=== PATIENT | male | born 1975 | race Caucasian/White ===

== ENCOUNTER → 2022-11-03 | Outpatient (CLI) | payer SELFPAY ==
[2022-11-03 19:26] LABS: Alanine Aminotransfer (ALT/SGP 46 U/L (12-78); Albumin, Blood 4.3 g/dL (3.4-5.0); Albumin/Globulin Ratio 1.4 (0.8-1.8); Alk Phos 88 U/L (50-136); Anion Gap 4 mmol/L (6-16); Aspartate Aminotrans (AST/SGOT 23 U/L (12-37); Bilirubin, Total 0.5 mg/dL (0.1-1.0); Blood Urea Nitrogen 14 mg/dL (8-24); Bun/Creatinine Ratio 14.7 (12.0-20.0); CHOL/HDL RATIO 5.4; CO2, Blood 25 mmol/L (21-32); Calcium, Blood 8.9 mg/dL (8.5-10.1); Chloride, Blood 108 mmol/L (98-108); Cholesterol 158 mg/dL (50-200); Creatinine, Blood 0.95 mg/dL (0.60-1.20); Globulin, Blood 3.1 g/dL (2.2-4.0); Glomerular Filtration Rate 101 (60-); Glucose, Blood 115 mg/dL (70-99); HDL Cholesterol 29 mg/dL (>39); LDL/HDL RATIO 3.9; Low Density Lipoprotein Chol 114 mg/dL (0-110); Potassium, Blood 4.2 mmol/L (3.5-5.5); Sodium, Blood 137 mmol/L (136-145); Total Protein, Blood 7.4 g/dL (6.4-8.2); Triglycerides 76 mg/dL (30-160); Very Low Density Lipoprot Chol 15 mg/dL (6-32)
== END | disposition home or self-care (01) ==
LOC: LAB SHORT 13:24
PROVIDERS: Hospitalist
DX: E78.2 Mixed hyperlipidemia (principal); I10 Essential (primary) hypertension
CPT/HCPCS: 80053; 80061

== ENCOUNTER 2023-09-02 07:15 | Day surgery (SDC) | payer BC ==
[~2023-09-02] VITALS: Ht 188 cm; Wt 103.7 kg
[~2023-09-02 07:15] MED LIST: AMLO5 PO; Aspir 8181 MG PO; Crestor40 MG PO; METO50ER PO; MULTI-VITAMIN1 EAC2 PO
[2023-09-02] MEDS ORDERED: Milk Thistle175 M1 (07:34)
[2023-09-02] MEDS ORDERED: VITAMIN D310 MC4 (07:34)
[2023-09-02] MEDS ORDERED: Lactated Ringer's 1,000 ML IV ONE ×2 (08:05→08:17)
[2023-09-02] MEDS ORDERED: propofoL 50 ML IV ONE (08:05)
[2023-09-02 09:17] VITALS: BP 121/77
== END 2023-09-02 09:19 | disposition home or self-care (01) ==
LOC: ORSCSDS 07:15
PROVIDERS: Specialist
PROC: 0DBL8ZX Excision of Transverse Colon, Via Natural or Artificial Opening Endoscopic, Diagnostic (ICD-10-PCS; principal; 2023-09-02 08:30)
DX: R10.32 Left lower quadrant pain (principal); K63.5 Polyp of colon; K64.8 Other hemorrhoids; I10 Essential (primary) hypertension; I25.2 Old myocardial infarction; K62.89 Other specified diseases of anus and rectum; Z79.82 Long term (current) use of aspirin; Z79.899 Other long term (current) drug therapy
CPT/HCPCS: 88305; J2704; J7120

== ENCOUNTER → 2024-01-13 | Outpatient (CLI) | payer BC ==
[~2024-01-13] MED LIST changes: +Milk Thistle175 M1; +VITAMIN D310 MC4
[2024-01-13 15:09] LABS: Alanine Aminotransfer (ALT/SGP 29 U/L (12-78); Albumin, Blood 3.9 g/dL (3.4-5.0); Albumin/Globulin Ratio 1.2 (0.8-1.8); Alk Phos 98 U/L (50-136); Anion Gap 8 mmol/L (3-11); Aspartate Aminotrans (AST/SGOT 17 U/L (12-37); Bilirubin, Total 0.4 mg/dL (0.1-1.0); Blood Urea Nitrogen 18 mg/dL (8-24); Bun/Creatinine Ratio 18.5 (12.0-20.0); CHOL/HDL RATIO 6.5; CO2, Blood 29 mmol/L (21-32); Calcium, Blood 9.1 mg/dL (8.5-10.1); Chloride, Blood 109 mmol/L (98-108); Cholesterol 214 mg/dL (50-200); Creatinine, Blood 0.97 mg/dL (0.60-1.20); Globulin, Blood 3.3 g/dL (2.2-4.0); Glomerular Filtration Rate 98 (60-); Glucose, Blood 108 mg/dL (70-99); HDL Cholesterol 33 mg/dL (>39); LDL/HDL RATIO 4.8; Low Density Lipoprotein Chol 160 mg/dL (0-110); Potassium, Blood 4.5 mmol/L (3.5-5.5); Sodium, Blood 141 mmol/L (136-145); Total Protein, Blood 7.2 g/dL (6.4-8.2); Triglycerides 106 mg/dL (30-160); Very Low Density Lipoprot Chol 21 mg/dL (6-32)
== END ==
LOC: LAB 13:33 → LAB SHORT 13:33
PROVIDERS: Hospitalist
DX: E78.2 Mixed hyperlipidemia (principal); I10 Essential (primary) hypertension
CPT/HCPCS: 80053; 80061

== ENCOUNTER → 2025-03-16 | Outpatient (CLI) | payer BC ==
[2025-03-16 17:11] LABS: Anion Gap 11.0 mmol/L (3-11); Blood Urea Nitrogen 15.0 mg/dL (8-24); CO2, Blood 26.0 mmol/L (21-32); Calcium, Blood 9.1 mg/dL (8.5-10.1); Chloride, Blood 105.0 mmol/L (98-108); Creatinine, Blood 1.01 mg/dL (0.60-1.20); Glucose, Blood 88.0 mg/dL (70-99); Potassium, Blood 4.6 mmol/L (3.5-5.5); Sodium, Blood 137.0 mmol/L (136-145)
[2025-03-23 16:39] LABS: TESTOSTERONE, FREE BY DIALYSIS 79.0 pg/mL (47.0-244.0); TESTOSTERONE, TOTAL MASS SPEC 448.4 ng/dL (300.0-890.0)
== END ==
LOC: LAB SHORT 13:34 → LAB 13:34
PROVIDERS: Hospitalist
DX: I10 Essential (primary) hypertension (principal); R68.82 Decreased libido
CPT/HCPCS: 80048; 84402; 84403